=== PATIENT | female | born 1950 | race African-American/Black ===

== ENCOUNTER 2021-06-14 15:21 | Day surgery (SDC) | payer MEDICARE ==
[~2021-06-14 15:21] MED LIST: ASPIRIN EC81 MG PO; CENTRUM ADULTS1 EACH PO; HCTZ25 MG PO; MOBIC15 MG PO; NORVASC10 MG PO; OXYBUTYNIN CHLOR5 M1 PO; VITAMIN B-121000 MC1 PO
[2021-06-14 18:21] LABS: BASOPHIL 0.9 % (0-2); EOSINOPHIL 0.6 % (0-7); HCT 43.1 % (37.0-47.0); HGB 13.8 g/dl (12.5-16.0); LYMPHOCYTE 12.5 % (15-48); MCH 27.1 pg (25.0-31.0); MCV 84.5 fL (78.0-100.0); MONOCYTE 7.6 % (0-12); MPV 8.7 fL (6.0-9.5); NEUTROPHIL 78.2 % (41-80); NRBC 0; PLT 253 K/uL (150-400); WBC 8.7 K/uL (4.0-10.5)
[2021-06-14 18:35] LABS: INR 1.11 (0.9-1.2); PROTHROMBIN TIME 13.7 SECONDS (11.8-13.4)
[2021-06-14 18:45] LABS: BILIRUBIN - TOTAL 0.7 mg/dL (0.2-1.0); BUN/CREAT RATIO (CALC) 14.5 RATIO; CREATININE 0.62 mg/dL (0.51-0.95); GLOBULIN (CALCULATION) 4.4 g/dL; POTASSIUM 3.5 mmol/L (3.5-5.1); TOTAL PROTEIN 8.4 g/dL (6.4-8.2)
== END 2021-06-14 21:11 | disposition home or self-care (01) ==
LOC: FER 15:21 → FAS 19:01 → FMS 20:07 → FAS 21:11
PROVIDERS: Physician Assistant
DX: T18.128A Food in esophagus causing other injury, initial encounter (principal); K22.2 Esophageal obstruction; K20.90 Esophagitis, unspecified without bleeding; I10 Essential (primary) hypertension; M19.90 Unspecified osteoarthritis, unspecified site; X58.XXXA Exposure to other specified factors, initial encounter; Z85.3 Personal history of malignant neoplasm of breast; Z80.0 Family history of malignant neoplasm of digestive organs; Z90.710 Acquired absence of both cervix and uterus; Z90.10 Acquired absence of unspecified breast and nipple; Z79.82 Long term (current) use of aspirin; Z88.1 Allergy status to other antibiotic agents
CPT/HCPCS: 36415; 70490; 71250; 80053; 85025; 85610; J7120

== ENCOUNTER → 2021-07-18 | Day surgery (SDC) | payer MEDICARE ==
[~2021-07-18] VITALS: Ht 172.7 cm; Wt 96.7 kg
[~2021-07-18] MED LIST changes: +FLONASE ALLER15.8 ML; +PROTONIX 40MG T40 MG PO
== END | disposition home or self-care (01) ==
LOC: FAS 06:25
DX: K22.2 Esophageal obstruction (principal); I10 Essential (primary) hypertension; M19.90 Unspecified osteoarthritis, unspecified site; I73.9 Peripheral vascular disease, unspecified; Z88.1 Allergy status to other antibiotic agents; Z79.82 Long term (current) use of aspirin
CPT/HCPCS: 70490; 71250; 74220; J2250; J2704; J7120